=== PATIENT | male | born 1960 | race African-American/Black ===

== ENCOUNTER 2016-11-11 10:23 | Observation (INO) | payer OTHER ==
--- NOTE | ~2016-11-11 | HP ---
History And Physical [address] [place]. [address] NAME: ALFREDO CORONADO : 58 STATUS : ADM Margy PAT#: [id number] AGE: 56 ADM/REG DATE : 11/11/16 MR#: [id number] REPORT SERV DATE: 11/12/16 DICTATED BY: DATE: REPORT STATUS : Draft TRANSCRIBED BY: MODL DATE: 11/12/16 DATE OF ADMISSION: 11/11/2016 PREVIOUS PRIMARY CARE PROVIDER: Dr. Pacheco. CHIEF COMPLAINT: Dizziness and headache. HISTORY OF PRESENT ILLNESS: This is a pleasant 56-year-old male, who presents with dizziness and sudden sharp pain, 01/28 "in the left temporal lobe." He reports the dizziness and the headaches have occurred for years, but worsening in the last week and a half. He has also had chronic joint and muscle pain to his shoulders that cause inability to sleep and on and off chest discomfort in the past greater than six months to a year that occurred intermittently. The patient states that per Dr. Pacheco, the chest discomfort was from bone over fatty material. He has not had any chest pain, shortness of breath, palpitations, orthopnea, or edema with at least the last week. During his admission for dizziness and headaches that have been occurring, his troponin was found to be 0.08, 0.07, 0.08. He reports to have had a stress test two to three years ago that was normal. Currently, he has no complaints and his symptoms have resolved. He reports that his dizziness occurs after the short stabbing pain to his left temporal lobe occurs, lasts a short period of time, and goes away on its own. The patient denies any recent fevers or chills. He denies palpitations. He denies syncopal episodes. The patient also denies any personal history of myocardial infarctions, strokes, DVTs, or pulmonary embolus. PAST MEDICAL HISTORY: Tibial plateau break, hypertension, diabetes, colitis, joint and musculoskeletal pain to shoulders and arms. PAST SURGICAL HISTORY: He has had a right knee surgery and left carpal tunnel surgery. SOCIAL HISTORY: He is and has a kid. 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 He does not smoke. He drank occasionally and socially for 15-20 years, but quit in July. He reports decreasing his alcohol intake helps with his joint and musculoskeletal pain. He denies any drug use. FAMILY HISTORY: His mother does not have any heart history per the patient. Father has a history of lung cancer and an FL at an unknown age. REVIEW OF SYSTEMS: A 14-point review of systems was performed, significant for HPI. No other contributory diagnoses identified. ALLERGIES: SULFA. HOME MEDICATIONS: Include Mobic 15 mg p.o. daily, Apriso 1.5 g p.o. daily, Januvia 100 mg p.o. daily, metformin 1000 mg p.o. with breakfast and supper, benazepril 20 mg p.o. twice a day, timolol maleate 0.25% ophthalmic solution one drop OPH daily in both eyes, amlodipine 5 mg p.o. twice a day, triamterene and hydrochlorothiazide 37.5/25 one tablet p.o. daily, History And Physical [address] [address] NAME: ALFREDO CORONADO : 58 STATUS : ADM Margy PAT#: [id number] AGE: 56 ADM/REG DATE : 11/11/16 MR#: [id number] REPORT SERV DATE: 11/12/16 DICTATED BY: DATE: REPORT STATUS : Draft TRANSCRIBED BY: CARYL DATE: 11/12/16 Ambien 10 p.o. at bedtime as needed p.r.n. insomnia, acetaminophen 1000 mg p.o. daily as needed p.r.n. pain, Xalatan one drop OPH at bedtime in both eyes. PHYSICAL EXAMINATION: GENERAL: Cooperative, in no apparent distress. HEENT: Head, normocephalic. Anicteric. Normal EOM. PERRLA. No xanthelasma. Nares patent. Moist mucous membranes. NECK: Trachea midline. No thyromegaly, JVD, or bruits. RESPIRATORY: Clear to auscultation bilaterally anterior and posterior. Respirations even and unlabored. No wheezes, rhonchi, or crackles. CARDIOVASCULAR: Regular rate and rhythm. No murmur, rub, or gallop appreciated. No chest wall tenderness to palpation. ABDOMEN: Soft, nontender, nondistended. Normal bowel sounds auscultated throughout. No masses or organomegaly. EXTREMITIES: No peripheral edema. DP/PT and radial pulses palpable bilaterally. No clubbing or cyanosis. SKIN: Warm, dry, and intact. Normal turgor. No pallor or cyanosis. NEURO/PSYCH: Alert, oriented x3 with no acute distress. Affect appropriate to current situation. LABORATORY DATA: Troponin 0.08, 0.07 and 0.08, flats. Sodium 140, potassium 3.5, BUN 17, creatinine 1.10, GFR is 86, glucose 140, magnesium 1.9. White blood cells 8.0, hemoglobin 13.0, hematocrit 37.1, platelets 269. INR 1.0. Chest x-ray was negative yesterday. EKG shows sinus rhythm with PAC on EKG done 11/12/2016. 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 CT of the brain is negative. ASSESSMENT AND PLAN: 1. Elevated troponins. Troponins are flat. The patient currently denies any chest pain. We will keep the patient n.p.o. The patient has been observed in the CPOU overnight to rule out myocardial infarction with serial enzymes and serial EKGs. He will be held n.p.o. for exercise treadmill today. If low-risk study and no ischemia noted, he will go home. We will also make a followup appointment with the patient's PCP in one to two weeks with all the studies being sent to that office. If anything suggestive of ischemia, Cardiology referral will be initiated. 2. Headache and dizziness. He reports that he has intermittent chest pain, but currently denies any pain today. CT of the brain was negative. He will need to follow up with his PCP in one week. 3. Hypertension. Stable. Blood pressure is 135/68. We will also address his home medications. 4. Diabetes. He is on a sliding scale insulin. EKS/MODL Hero Napier APN History And Physical [address] [address] NAME: ALFREDO CORONADO : 58 STATUS : ADM Margy PAT#: [id number] AGE: 56 ADM/REG DATE : 11/11/16 MR#: [id number] REPORT SERV DATE: 11/12/16 DICTATED BY: DATE: REPORT STATUS : Draft TRANSCRIBED BY: MODL DATE: 11/12/16 / [id number] CC: Jill Pressley MSN, SCALE OPERATOR-BC Tom Quiles II, M.D.
[~2016-11-11 10:23] MED LIST: ASACOL PO; GLUCPH PO; LOTREL1 CA4 PO; MAXIDE
[2016-11-11 11:18] LABS: ASCORBIC ACID (UR NOT ORDER) NEG (NEG); BILIRUBIN, URINE NEGATIVE (NEG); ER URINALYSIS TAT 0 Hrs 00 Mins; KETONE, URINE NEGATIVE (NEG); LEUKOCYTE ESTERASE(NOT OR NEG (NEG); NITRITE (URINE) NEG (NEG); WBC (NOT ORDERED) (RFLEX) < 1 (0-5)
[2016-11-11 11:27] LABS: BASOPHILS 0.3 %; BASOPHILS ABSOLUTE 0.02 10/3/uL (0.0-0.16); EOSINOPHILS ABSOLUTE 0.16 10/3/uL (0.0-0.53); HEMATOCRIT 37.1 % (40.0-51.0); IMMATURE GRANULOCYTES 0.3 %; IMMATURE GRANULOCYTES ABSOLUTE 0.02 10/3/uL (0.0-0.11); LYMPHOCYTES 18.5 %; LYMPHOCYTES ABSOLUTE 1.47 10/3/uL (0.67-4.30); MANUAL DIFF NO %; MEAN CORPUSCULAR HEMOGLOB 33.1 pg (26.0-34.0); MEAN CORPUSCULAR VOLUME 94.4 fL (80-100); MEAN PLATELET VOLUME 10.9 fL (9.2-13.0); MONOCYTES 5.8 %; MONOCYTES ABSOLUTE 0.46 10/3/uL (0.21-1.20); NEUTROPHILS 73.1 %; NEUTROPHILS ABSOLUTE 5.82 10/3/uL (2.02-8.40); PLATELET COUNT 269 10/3/uL (150-400); RBC DISTRIBUTION WIDTH 12.2 % (12.0-16.0); RED CELL COUNT 3.93 10/6/uL (4.7-6.1)
[2016-11-11 11:36] LABS: PARTIAL THROMBO TIME 30.3 SEC (22.5-37.2); PROTIME (NOT ORD) 13.5 SEC (12.0-14.5)
[2016-11-11 11:47] LABS: BUN (BLOOD UREA NITROGEN) 17 MG/DL (6-23); CALCIUM, SERUM 9.5 MG/DL (8.5-10.4); CHEST PAIN PROFILE TAT 0 Hrs 24 Mins; CHLORIDE, SERUM 105 MMOL/L (96-112); CO2 (CARBON DIOXIDE) 30 MMOL/L (24-34); GFR AFRICAN AMERICAN 86 ML/MIN (>=60); GFR NON AFRICAN AMERICAN 74 ML/MIN (>=60); GLUCOSE, SERUM 140 MG/DL (60-99); POTASSIUM, SERUM 3.5 MMOL/L (3.5-5.3); SODIUM, SERUM 140 MMOL/L (135-148); TROPONIN I 0.08 NG/ML (<0.05)
[2016-11-11 13:36] LABS: SED RATE 8 MM/HR (0-15)
[2016-11-11] MEDS ORDERED: APRISO0.375 GM PO (15:32)
[2016-11-11] MEDS ORDERED: JANUVIA100 MG PO (15:32)
[2016-11-11] MEDS ORDERED: MOBIC15 MG PO (15:32)
[2016-11-11] MEDS ORDERED: TIMOLOL MAL0.25 % OPH (15:33)
[2016-11-11] MEDS ORDERED: NORV5 PO (15:33)
[2016-11-11] MEDS ORDERED: GLUCOPHAGE1000 MG PO (15:33)
[2016-11-11] MEDS ORDERED: MAX25 PO (15:33)
[2016-11-11] MEDS ORDERED: LOTE20 PO (15:33)
[2016-11-11] MEDS ORDERED: AMB10 PO (15:34)
[2016-11-11] MEDS ORDERED: ACET500CAP PO (15:34)
[2016-11-11] MEDS ORDERED: XALAT OPH (15:34)
== END 2016-11-12 13:05 | disposition home or self-care (01) ==
LOC: ER 10:23 → CDU1 15:11 → CDU2 15:22
PROVIDERS: Emergency Medicine; Nurse Practitioner Family
DX: R42 Dizziness and giddiness (principal); R07.89 Other chest pain; R74.8 Abnormal levels of other serum enzymes; I10 Essential (primary) hypertension; M19.90 Unspecified osteoarthritis, unspecified site; E11.9 Type 2 diabetes mellitus without complications; Z88.2 Allergy status to sulfonamides; Z79.899 Other long term (current) drug therapy; Z98.890 Other specified postprocedural states
CPT/HCPCS: 70450; 71020; 80048; 81001; 82962; 83735; 84484; 85025; 85610; 85652; 85730; 93005; 93017; 99285; A9270-GY; G0378